=== PATIENT | male | born 1985 | race Caucasian/White ===

== ENCOUNTER 2025-02-14 01:40 | Inpatient (IN) | payer BC, SELFPAY ==
[2025-02-13 20:31] VITALS: BP 187/112
[2025-02-13 21:03] VITALS: BMI 42.9
[2025-02-13 21:17] VITALS: BP 144/79
[2025-02-13 21:27] LABS: % Basophils 0.6 % (0-2); % Eosinophils 4.1 % (0-6); % Immature Granulocytes 0.4 % (0-0.5); % Lymphocytes 35.1 % (20.5-51.1); % Monocytes 7.2 % (1.7-9.3); % Neutrophils 52.6 % (42.2-75.2); Absolute Basophils 0.1 10^3/uL (0-0.2); Absolute Eosinophils 0.5 10^3/uL (0-0.7); Absolute Immature Granulocytes 0.1 10^3/uL (0-0.05); Absolute Lymphocytes 4.4 10^3/uL (1.2-3.4); Absolute Monocytes 0.9 10^3/uL (0.1-0.6); Absolute Neutrophils 6.7 10^3/uL (1.4-6.5); Hematocrit 44.6 % (39.0-52.0); Hemoglobin 15.8 g/dL (13.0-18.0); Mean Corp Hgb Conc. 35.4 g/dL (33.0-37.0); Mean Corpuscular Hgb 29.9 pg (27.0-31.0); Mean Corpuscular Volume 84.3 fL (80.0-94.0); Mean Platelet Volume 9.6 fL (7.4-10.4); Nucleated Red Blood Cells % 0 % (-); Platelet Count 341 10^3/uL (130-400); Red Blood Cell Count 5.29 10^6/uL (4.70-6.10); Red Cell Dist. Width 12.4 % (11.5-14.5); White Blood Cell Count 12.6 10^3/uL (4.8-10.8)
[2025-02-13 21:43] LABS: ALT (SGPT) 24 U/L (0-50); AST (SGOT) 25 U/L (17-59); Albumin 4.2 g/dl (3.5-5.0); Alkaline Phosphatase 77 U/L (38-126); Blood Urea Nitrogen 15 mg/dl (9-20); Calcium 9.4 mg/dl (8.4-10.2); Carbon Dioxide 24 mmol/L (22-30); Chloride 110 mmol/L (98-107); Estimated Creatinine Clearance > 125 ml/min; Glucose 152 mg/dl (70-99); Potassium 3.7 mmol/L (3.5-5.1); Sodium 142 mmol/L (135-145); Total Bilirubin 0.7 mg/dl (0.2-1.3); Total Protein 7.1 g/dl (6.3-8.2); eGFR > 60.00
[2025-02-13 21:47] LABS: Troponin I < 0.012 ng/ml
[2025-02-13 22:00] VITALS: BP 131/79
[2025-02-13 23:00] VITALS: BP 150/98
[2025-02-13 23:00] LABS: D-Dimer 1.98 ug/mlFEU (0.00-0.50)
[2025-02-13 23:50] LABS: TSH 3.65 uIU/ml (0.47-4.68)
[2025-02-14] VITALS (15 sets, daily range): BP systolic 125–175; BP diastolic 85–115; BMI 42.0; BMI 41.9
--- NOTE | 2025-02-14 00:39 | ED.GENMED ---
History of Present Illness
General
Chief Complaint: Chest Pain
Source: patient
Exam Limitations: none
Time Seen by Provider: 02/13/25 22:01
Nursing documentation reviewed up to this point in time: agreed with
History of Present Illness
History of Present Illness:
Note:
CHIEF COMPLAINT(S)
Chest pain.
HISTORY OF PRESENT ILLNESS
The patient is a 39-year-old male who presents with chest pain that began around 4:30-5:00 PM yesterday. The pain is described as a dull ache initially rated at 1/10 in severity, located at the lower part of the sternum, left side of the chest. The
pain intensity increased to 3/10 when bending over or lying flat. He attempted to continue normal activities such as looking after children, suspecting stress, and tried self-medication with antacids like Tums, which provided no relief. Throughout
the day, while sitting, the pain was around 2/10 and increased to 4/10. He also developed a dry cough that exacerbated the pain. The patient reported his spouse�s concern about his symptoms persisting despite antacid use.
On review of associated symptoms, the patient notes an increased heart rate and mild shortness of breath since the onset of symptoms, but no significant dyspnea. He experiences increased heart rate when moving around the house with occasional
windedness but no exercise intolerance. His resting heart rate, usually around 80, has been elevated to the mid to high 90s.
ADDITIONAL HISTORY OBTAINED FROM SOURCES OTHER THAN THE PATIENT
the symptoms have persisted despite the use of antacids, prompting concern.
CHRONIC MEDICAL CONDITIONS SIGNIFICANTLY AFFECTING CARE
Chronic conditions affecting care: Family history of diabetes in the mother and possible heart problems in the father.
SOCIAL HISTORY
The patient reports very rare alcohol use during social events. There is no history of smoking or drug use. He works as a internet and e business project manager.
PHYSICAL EXAM
- Nursing notes reviewed and vital signs reviewed.
- Oxygen saturation: 95%.
- Blood pressure: Within normal limits.
- Cardiovascular: Heart sounds normal, no murmurs auscultated.
- Respiratory: Breath sounds clear, no swelling or significant dyspnea noted.
PLAN
A D-dimer test will be conducted to evaluate the presence of a blood clot. If negative, further evaluation may not be necessary. If positive, additional imaging (potentially a CT scan) will be considered.
DIFFERENTIAL DIAGNOSIS
The Differential Diagnosis includes, in no particular order and is not limited to:
1. Gastroesophageal reflux disease (GERD)
2. Costochondritis
3. Pulmonary embolism
4. Myocardial ischemia
5. Anxiety-related chest pain
6. Pericarditis
7. Musculoskeletal pain
8. Pneumothorax
9. Aortic dissection
10. Pneumonia
EKG
My independent EKG interpretation is:
- Normal sinus rhythm
- Heart rate of 99 beats per minute
- Normal intervals
- Indeterminate/normal axis
- No evidence of acute ischemia present
- No old EKG available for comparison
CARE-UPDATE
02/13/25 - 23:06
D-dimer is elevated at 1.98, prompting the decision to order a CT angiography of the chest to rule out pulmonary embolism (PE).
CARE-UPDATE
02/14/25 - 00:51
Patient presents with multiple large pulmonary emboli identified on CAT scan. Initiating anticoagulation therapy with heparin and planning for hospital admission to manage condition. Monitoring and additional evaluation required to determine
etiology. Transition to alternative anticoagulant planned after initial heparin course. Patient denies recent prolonged immobility, long road trips, or recent trauma.
PERC RULE FOR PULMONARY EMBOLISM:
Result Summary
1 points You have a positive criteria, the PERC rule cannot be used to rule out PE
Inputs:
Age >=0 -> 0 = No
HR >=00 -> 1 = Yes
O? sat on room air <95% -> 0 = No
Unilateral leg swelling -> 0 = No
Hemoptysis -> 0 = No
Recent surgery or trauma -> 0 = No
Prior PE or DVT -> 0 = No
Hormone Use -> 0 = No
WELLS' CRITERIA FOR PULMONARY EMBOLISM:
Result Summary
1.5 points Low Risk for PE & PE Unlikely
Inputs:
Clinical signs and symptoms of DVT -> 0 = No
PE is #1 diagnosis OR equally likely -> 0 = No
Heart rate > 100 -> 1.5 = Yes
Immobilization at least 3 days OR surgery in the previous 4 weeks -> 0 = No
Previous, objectively diagnosed PE or DVT -> 0 = No
Hemoptysis -> 0 = No
Malignancy w/ treatment within 6 months or palliative -> 0 = No
Disposition:
ASSESSMENT
Massive pulmonary emboli bilaterally with right heart strain.
EMERGENCY TREATMENTS ADMINISTERED
Initiation of heparin.
MANAGEMENT OF THE PATIENTS CARE WAS DISCUSSED WITH
Storage Engineer Dr. Hutson.
PLAN
Patient to be admitted to the hospitalist service for further management.
MEDICATION RECONCILIATION
Initiated heparin anticoagulation therapy.
MEDICAL DECISION MAKING
1. Number & Complexity of Problems: Acute condition with massive bilateral pulmonary emboli with right heart strain.
2. Data Reviewed: Reviewed CT angiography findings confirming pulmonary embolism.
3. Risk: Consideration of admission was made due to the complexity and high-risk nature of the condition. Inpatient management is necessary given the massive emboli and right heart strain.
DIAGNOSIS
Massive pulmonary emboli with right heart strain.
PATHOLOGIES TO CONSIDER
- Pulmonary embolism (confirmed)
- Acute coronary syndrome (differential considered)
Phy Exam
General Physical Exam
General Presentation: well appearing and no apparent distress
General Skin: warm and dry
General Habitus: normal
General Mental: alert
General Hydration: appears well hydrated
ENT Exam
ENT Exam: EOMI, pharynx normal, neck supple and normocephalic
Eye Exam
Eye Exam: PERRL, cornea clear and conjunctiva normal
Cardiovascular Exam
Cardiovascular Exam: regular rate/rhythm, no edema, no murmur and normal peripheral pulses
Pulmonary Exam
Pulmonary Exam: lungs clear, no respiratory distress, no rales, no crackles, no rhonchi, no stridor, no wheezing and no cough
Gastrointestinal Exam
Gastrointestinal Exam: normal bowel sounds, non tender, soft, no organomegaly, no pulsatile mass and non distended
Neurological Exam
Neurological Exam: alert, oriented x3, no motor deficits and speech normal
Musculoskeletal Exam
Musculoskeletal Exam: full ROM and no edema
Skin Exam
Skin Exam: normal color, warm/dry, no rash and no petechia
Psychiatric Exam
Psychiatric Exam: normal mood/affect
Scores
Heart Score for Chest Pain Patients
STEMI patient?: No
History: Moderately Suspicious
ECG: Normal
Age: </= 45 years
Risk Factors: 1 or 2 Risk Factors
Troponin: </= Normal Limit
Heart Score for Chest Pain Patients: 2
Heart Score Risk: 2.5% MACE over next 6 weeks
Course
Orders/Labs/Results
Orders:
Orders
02/13/25 20:26
EKG [Electrocardiogram (*1)] Urgent
Reason for Study: Chest Pain
EKG- Treatment ONCE
02/13/25 21:14
Complete Blood Count/With Diff Urgent
Comprehensive Metabolic Panel Urgent
TSH Urgent
Comment: ADD ON
Troponin I Urgent
02/13/25 22:17
Add On- LAB Urgent
Tests Added?: TSH
Electrocardiogram (*1) Urgent
Reason for Study: Chest Pain
02/13/25 22:20
D-Dimer Urgent
PTT Urgent
Comment: ADD ON
02/13/25 23:13
EKG- Treatment ONCE
02/14/25 00:01
EKG [Electrocardiogram (*1)] Urgent
Reason for Study: Chest Pain
02/14/25 00:08
CT Chest PE Study Urgent
Reason For Exam: dyspnea, cp, elev DDIMER
02/14/25 00:30
Add On- LAB Urgent
Tests Added?: PTT
02/14/25 00:37
Troponin I Urgent
02/14/25 00:48
Heparin 10,000 units IV NOW STA
Nursing to Place Non Medication Order As Directed
Physician Order: PTT 6 hours after initial start of Heparin infusion
Above order entered?: Yes
02/14/25 00:55
Heparin 10,000 units IV PRN PRN
Heparin 5,000 units IV PRN PRN
02/14/25 01:00
Flush (0.9% Sodium Chloride) [Flush (Nss)] See Dose Instructions IV PER PROTOCOL
Heparin 45719 Units/250 ml 25,000 units in 250 ml IV PER PROTOCOL
Weight to be used for heparin protocol in kilograms (kg):: 155.6
Protocol:: DVT/PE
PTT Goal Range to be used:: PTT 73 to 111 seconds
Order type:: Initial
INITIAL Infusion Dose (UNITS/KG/hr) & then follow protocol:: 18 units/kg/hr
Infusion Dose in UNITS/hr & then follow protocol (UNITS/hr):: 2,000
INFUSION RATE in mL/hr & then follow protocol (mL/hr):: 20
For DVT/PE algorithm, re-bolus for low PTT?: Yes
PTT less than or equal to 64 seconds:: Re-bolus 80 units/kg (max 10,000units). Increase by 500 units/hr
(+ 5mL/hr)
PTT 64.1 to 72.9 seconds:: Re-bolus 40 units/kg (max 5,000 units). Increase by 300 units/hr
(+ 3mL/hr)
PTT 73 to 111 seconds:: Target Range. No change in rate.
PTT 111.1 to 130.9 seconds:: Decrease rate by 300 units/hr (- 3 mL/hr)
PTT 131 to 199.9 seconds:: HOLD for 1 hr. Then decrease by 400 units/hr (- 4mL/hr)
PTT greater than or equal to 200 seconds:: HOLD for 2 hrs & Notify Provider. Then decrease by 500 units/hr
(- 5mL/hr)
Lab follow-up:: Each change, PTT q6h until 2 consecutive are therapeutic. Then
PTT daily.
02/14/25 01:27
Admit/Transfer Patient As Directed
Co-Sign Provider:
Level of Care: Inpatient admission
Assign to:: IMU- Intermediate Care
Physician / Group: Mati
Diagnosis: pulmonary embolism
Reason for Hospitalization: pulmonary embolism
Expected length of stay greater than two midnights?: Yes
ELOS- Estimated Length of Stay in days: 2
I certify the patient meets the requirements for IP care: Yes
02/14/25 01:28
PRN Pain Medication Management As Directed
May give lesser potent ordered pain med per pt: Yes
preference::
Protocol:: Medication orders for pain may be administered in a
manner that supports deferring to patient preference
when the pt is:
- Requesting an ordered lesser potent pain medication.
Least to most potent pain medications are defined
as: acetaminophen < NSAID < tramadol < opioids
(morphine, oxycodone, hydromorphone).
- Requesting a lesser dose of the same medication IF
ORDERED.
- Requesting a less intrusive route of administration
if both routes are prescribed by the provider (PO <
IV).
02/14/25 01:29
Code Status As Directed
Resuscitation Status: Full Code
02/14/25 01:35
PRN Pain Medication Management As Directed
May give lesser potent ordered pain med per pt: Yes
preference::
Protocol:: Medication orders for pain may be administered in a
manner that supports deferring to patient preference
when the pt is:
- Requesting an ordered lesser potent pain medication.
Least to most potent pain medications are defined
as: acetaminophen < NSAID < tramadol < opioids
(morphine, oxycodone, hydromorphone).
- Requesting a lesser dose of the same medication IF
ORDERED.
- Requesting a less intrusive route of administration
if both routes are prescribed by the provider (PO <
IV).
02/14/25 01:43
COVID-19 Antigen Stat
Source: Nasal Swab
02/14/25 02:12
Acetaminophen [Tylenol] 650 mg PO Q4HPRN PRN
Morphine Sulfate 2 mg IV Q4HPRN PRN
02/14/25 02:12
Echo 2D MMode Color/Doppler Routine
Reason for Study: pulmonary embolism
PULMONARY CONSULT Routine
Consulting Provider: Keerthi Hutson
Was physician already notified: Yes
Heparin Protocol- PTT Orders As Directed
PTT per Heparin protocol: -Obtain CBC and baseline PTT - if not already collected.
-Obtain PTT 6 hours from start of infusion. Then, every 6 hours until 2 consecutive
PTT's are therapeutic. Then, PTT Daily.
-With each rate change, obtain PTT every 6 hours until 2 consecutive PTT's are
therapeutic. Then, PTT Daily.
Activity As Directed
Activity Level: As Tolerated
Bladder Scan As Directed
Follow Bladder Retention/Intermittent Cath Algorithm?: Yes
Frequency: Per Retention Algorithm
Comment: as per intermittent urinary catheter algorithm
Bladder Scan As Directed
Follow Bladder Retention/Intermittent Cath Algorithm?: Yes
PRN if no void in __ hours: 6
Frequency: Per Retention Algorithm
If Bladder Scan Result >: 400
then:: Straight cath
Intake/ Output As Directed
Frequency: Per unit guidelines
Notify MD As Directed
Notify physician if: PTT is greater than or equal to 200.
Straight Cath As Directed
Frequency: Per Retention Algorithm
Additional Instructions: as per intermittent urinary catheter algorithm
Straight Cath As Directed
Frequency: Per Retention Algorithm
Additional Instructions: straight cath as needed per acute urinary retention algorithm for 24 hrs
Additional Instructions: for bladder scan greater than 400 mL
Vital Signs As Directed
Frequency: Per unit guidelines
O2 Therapy [RESP] Routine
Titrate/Wean O2 to maintain O2 sat greater than (%): 90
Pulse Ox/cont/shift [RESP] Routine
Quantity: 1
Special Instructions: check O2 Sat Q8 hours and at each change in oxygen liter flow and FiO2
Venous Doppler Lwr Ext Bilat [US Periph Venous LOWER Ext Joshua] Urgent
Comment:
Reason For Exam: joshua PE, eval LE for dvt and clot burden
02/14/25 Breakfast
Cholesterol Lowering
At Your Request: Full Participation
Cholesterol Lowering: Sodium, 2 Gram
Glycohemoglobin (HgbA1c) IN AM
PTT Urgent
Comment: Heparin gtt
Procalcitonin IN AM
If negative, will antibiotics be d/c'd or not started: Yes
Does the patient have renal or hepatic impairment?: No
Any recent (w/in 48 hrs) physiologic stress (CPR, rhabdo): No
Troponin I IN AM
02/14/25 08:00
Multivitamin [Theragran] 1 tablet PO DAILY
Polyethylene Glycol Powder [Miralax] 17 grams PO DAILY
02/16/25 06:00
Complete Blood Count/No Diff Q2D
Comment: notify provider: Platelet count < 130,000 or decrease by 50% from baseline
02/16/25 11:00
DC Protocol for Telemetry ONCE
02/18/25 06:00
Complete Blood Count/No Diff Q2D
Comment: notify provider: Platelet count < 130,000 or decrease by 50% from baseline
02/20/25 06:00
Complete Blood Count/No Diff Q2D
Comment: notify provider: Platelet count < 130,000 or decrease by 50% from baseline
02/22/25 06:00
Complete Blood Count/No Diff Q2D
Comment: notify provider: Platelet count < 130,000 or decrease by 50% from baseline
02/24/25 06:00
Complete Blood Count/No Diff Q2D
Comment: notify provider: Platelet count < 130,000 or decrease by 50% from baseline
02/26/25 06:00
Complete Blood Count/No Diff Q2D
Comment: notify provider: Platelet count < 130,000 or decrease by 50% from baseline
02/28/25 06:00
Complete Blood Count/No Diff Q2D
Comment: notify provider: Platelet count < 130,000 or decrease by 50% from baseline
03/02/25 06:00
Complete Blood Count/No Diff Q2D
Comment: notify provider: Platelet count < 130,000 or decrease by 50% from baseline
Abnormal Lab Results
02/13/25 02/13/25
21:14 22:20
WBC 12.6 H 10^3/uL
(4.8-10.8)
Abs Immat Gran (auto) 0.1 H 10^3/uL
(0-0.05)
Absolute Neuts (auto) 6.7 H 10^3/uL
(1.4-6.5)
Absolute Lymphs (auto) 4.4 H 10^3/uL
(1.2-3.4)
Absolute Monos (auto) 0.9 H 10^3/uL
(0.1-0.6)
D-Dimer 1.98 H ug/mlFEU
(0.00-0.50)
Chloride 110 H mmol/L
(98-107)
Glucose 152 H mg/dl
(70-99)
02/13/25 21:14
02/13/25 21:14
Vital Signs
Initial and Last Documented VS:
Initial Vital Signs
Temp Pulse Resp BP Pulse Ox
98.1 F 104 22 187/112 95
02/13/25 20:31 02/13/25 20:31 02/13/25 20:31 02/13/25 20:31 02/13/25 20:31
Last Documented Vital Signs
Temp Pulse Resp BP Pulse Ox
98.3 F 89 16 150/100 94
02/14/25 02:26 02/14/25 06:15 02/14/25 06:15 02/14/25 06:00 02/14/25 06:15
*Radiology
Radiology exam reviewed: radiology read reviewed
*Pulse Oximetry
SaO2: 95
Oxygen Mode of Delivery: Room air
*Critical Care Note
Total Time (30-74mins, 75-104mins- exclusive of procedures): 41
comment:
Critical care statement: A total of 41 minutes of critical care time was provided for this patient. This time is separate from time utilized to perform the aforementioned documented procedures. Aggregate critical care time includes only time
during which I was engaged in work directly related to the patient's care, as described above, whether at the bedside or elsewhere in the Emergency Department.
Update Note
Update Note:
NAME: INA EAST
DATE OF EXAM: 02/14/2025
Patient No: [id number]
Physician: YOCASTA^Kaia
Date of : 1985
Past Medical History (entered by Technologist):
Reason For Exam (entered by Technologist): CP, SOB. elevated ddimer
Other Notes (entered by Technologist): no prior
Additional Information (per [facility] Radiologist):
CT CHEST WITH CONTRAST
IMPRESSION:
Large pulmonary emboli are noted in the main right and left pulmonary arteries extending into all lobar branches.
Small amount of peripheral consolidation is noted at the left lung base with adjacent trace pleural effusion. May represent a small lung infarction in this context. Infection not excluded.
Bowing is noted of the intraventricular septum, concerning for potential right heart strain.
Mosaic pattern protrusion noted in both lungs which can be seen with differential perfusion or air-trapping.
No evidence of aortic dissection.
Inferior most aspect of the right lung not included in the [id number] obtained.
Incidental findings on CT chest:
Mild degenerative changes noted of the spine.
Case discussed with Dr. Moore at 1247 AM ET.
Spoke with Dr. Hutson, specialist field engineer after PERT alert was called. He recommends heparin and admission.
ED Attending Note
-
Portions of this chart may have been created with voice recognition software.� Occasional wrong word or��sound alike� substitutions may have occurred due to the inherent limitations of voice recognition software.
Discharge Plan
Departure
Patient Disposition: Admit
Date of Disposition: 02/14/25
Time of Disposition: 00:54
Presentation/result/management discussed w/ accepting MD/DO: Hospitalist
Discharge Problem:
Pulmonary embolism, Right heart strain
Interventions
Interventions:
*Risk Screen - Suicide Last Done: 02/13/25 20:31
*General Assessment Last Done: 02/13/25 20:31
*Neglect/Abuse Screening Last Done: 02/13/25 20:31
*ED- Fall Risk Assessment Last Done: 02/13/25 21:03
*ED COVID-19 Vaccine History Last Done: 02/14/25 02:02
*Nursing Disposition Last Done: 02/14/25 02:20
ED- Cardiac Assessment Last Done: 02/13/25 21:03
Discharge Date and Time
Discharge Date/Time: 02/14/25 02:21
[2025-02-14 00:50] LABS: APTT 32.7 Sec (23.4-35.0)
[2025-02-14] MEDS: HEPARIN 10000 UNITS IV (01:04)
[2025-02-14] MEDS: HEPARIN 25000 UNITS/250 ML IV ×2 (01:06→14:01)
[2025-02-14 01:13] LABS: Troponin I < 0.012 ng/ml
--- NOTE | 2025-02-14 01:16 | HPS.HSE ---
Family Physician
-
Family Physician: Judy Henry
Chief Complaint
-
Chest pain
History of Present Illness
This is a 39-year-old male with past medical history significant for obesity who presents to the emergency department with 1 day history of chest pain shortness of breath and dyspnea on exertion and was found to have bilateral pulmonary emboli in
the emergency department.
Patient reported onset of noticeable symptoms around 4 PM yesterday. Started as substernal chest ache and then intensified over the ensuing hours. He started having more dyspnea and increasing chest pain with his basic activities such as looking
after his children. He took antacids such as Tums without any relief. He denied any radiation nausea vomiting or diaphoresis. The chest pain slowly exacerbated over the rest of the evening and today. He started having a cough that was dry and
associated with worsening chest pain. He stated that with any amount of activity he notices that his heart rate spikes to the 120s and dosing return to his baseline heart rate despite resting. His heart rate response to the 90s and 100 whereas his
baseline is around 80. He denies feeling lightheaded.
Patient denies any recent calf pain swelling or tenderness. Denied any recent travels. Denies any recent COVID infection or flulike illness.
Patient denies any recent accidents, hospitalizations or otherwise immobilization. 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
He denies any family history of clotting disorders.
In the emergency department patient was hemodynamically stable with a blood pressure of 144/79 and was satting 97% on room air. He was afebrile. ECG shows a normal sinus rhythm without any acute ST or T wave changes. His initial troponin was
negative.
White count. 0.6 hemogram platelets were normal. Electrolytes were normal. BUN/creatinine were normal.
A CT PE study showed large pulmonary emboli noted in the main right and left pulmonary arteries extending into all lobar branches with a small amount of peripheral consolidation thought to be likely a small infarct. There is evidence of mild
interventricular septal bowing consistent with possible right heart strain.
Medical History
Past Medical History
Past Medical History: Reports None
Past Surgical History: Reports Other (Umbilical hernia repair)
Social History
Tobacco: Non-smoker
Alcohol: None
Drug: None
Personal:
Living: With Family
Employment: Employed
Family History
Family History: CAD (Father with CAD) and Cancer (Father with colon cancer in his late 70s)
Allergies / Home Medications
Allergies reflects when Allergies were last updated in [facility].
Home Medications with original date entered in [facility]
Allergy/Medication List:
Allergies
Allergy/AdvReac Type Severity Reaction Status Date / Time
No Known Allergies Allergy Verified 02/13/25 22:40
Home Medications
multivitamin 1 tab PO DAILY 02/13/25
Review of Systems
-
Constitutional: Reports No Symptoms
EENT: Reports No Symptoms
Respiratory: Reports Cough and Trouble Breathing
Cardiac: Reports Chest Pain; Denies Diaphoresis, Palpitations or Syncope
Abdomen/GI: Reports No Symptoms
: Reports No Symptoms
Musculoskeletal: Denies Edema
Skin: Reports No Symptoms
Neurological: Reports No Symptoms
Endocrine: Reports No Symptoms
Hematologic/Lymphatic: Reports No Symptoms
Psych: Reports No Symptoms
Physical Exam
Vital Signs
Vital Signs
Temp Pulse Resp BP Pulse Ox
98.1 F 98 20 144/79 95
02/13/25 20:31 02/13/25 21:30 02/13/25 22:39 02/13/25 21:17 02/14/25 00:40
Physical Exam
General: Well Developed, Well Nourished, No Apparent Distress and Obese
HEENT: NormoCephalic, Moist mucous membranes and Atraumatic
Respiratory: Clear
Cardiac: S1/S2 and Regular Rhythm; No Murmur or Rub
GI: Soft, Non Tender, Non Distended and Normal Bowel Sounds; No Organomegaly
Rectal: Deferred by Provider
Musculoskeletal: No Clubbing, No Cyanosis and No Edema
Skin: No Rash
Neuro: Nonfocal/grossly intact
Hematologic/Lymphatic: No Lymphadenopathy
Psych: Calm
Laboratory Results
-
02/13/25 21:14
02/13/25 21:14
Laboratory Results
APTT 32.7 Sec (23.4-35.0) 02/13/25 22:20
Total Bilirubin 0.7 mg/dl (0.2-1.3) 02/13/25 21:14
AST 25 U/L (17-59) 02/13/25 21:14
ALT 24 U/L (0-50) 02/13/25 21:14
Alkaline Phosphatase 77 U/L (38-126) 02/13/25 21:14
Troponin I < 0.012 ng/ml 02/14/25 00:37
Data Reviewed
-
CT Scan: Report Reviewed by me
Medical Tests (Nuc Med, Echo, EKG etc): Image Personally Visualized and interpreted
Lab Data: Labs Reviewed by me
Old Records: Reviewed
Impression/Plan
-
IMPRESSION:
39-year-old male with obesity but otherwise no significant past medical history, presenting with unprovoked pulmonary embolism with bilateral pulmonary artery emboli and the likely a small pulmonary infarct. CT scan consistent with possible right
heart strain. Patient is hemodynamically stable, not requiring oxygen, nontachycardic at rest. ECG is nonischemic and shows no strain. His troponin is negative.
PLAN:
Bilateral pulmonary embolism�at this time no evidence that he was provoked by anything. Patient has a sedentary lifestyle but otherwise normal risk factors and no family history. He does not have large clot burden but no evidence of massive or
submassive PE at this time. The PESI score is 49, low risk category despite large clot burden.
- admit to IMU given large clot burden
- obtain echo
- while echo pending, will continue IV heparin gtt anticoagulation
- covid test, joshua LE u/s,
- serial examinations
- pulmonary aware and consulted
- based on unprovoked nature of PE, consider hypercoagulable w/u.
Code status -Full Code
[2025-02-14 02:05] LABS: COVID-19 Antigen Negative (Negative)
--- NOTE | 2025-02-14 03:02 | PTCARENOTE ---
Patient admitted to IMU from ED, aao x3, able to make needs known. Denies pain at rest, states he has some discomfort with activity to area below rib cage/sternum. NSR on the monitor. Lung sounds diminished throughout, 94% on ra, denies sob or velazquez.
BS active x4, patient stand by assist x1 to the bathroom, gait steady. Patient urinated moderate amount. Heparin gtt running to right a/c at 20ml/hr. Call nance within reach, will continue to monitor patient closely.
[2025-02-14 06:32] LABS: APTT 97.8 Sec (23.4-35.0)
[2025-02-14 06:51] LABS: Procalcitonin < 0.05 ng/ml (0.0-0.25)
[2025-02-14 06:53] LABS: Troponin I < 0.012 ng/ml
[2025-02-14] MEDS: THERAGRAN 1 TABLET PO (07:44)
--- NOTE | 2025-02-14 08:14 | CON.PUL ---
Consultation
Consultation Request
Date/Time Consultation Requested: 02/14/2025
Date/Time Consultation Performed: 02/14/2025
Requesting Provider: Elizabeth Thorne
Performing Provider: Keerthi Hutson
Reason for Consultation: Pulmonary Embolism
Medical History
-
Chief Complaint: Chest pain
History of Present Illness:
Patient is a 39-year-old gentleman with morbid obesity and overall sedentary lifestyle, who presented to emergency room with 1 day onset of chest pain. Initial troponin and EKG in the emergency room were unremarkable. Patient subsequently had a CT
scan which was suggestive of bilateral pulmonary embolism with right heart strain.
PERT alert was called, I discussed the case with the ED physician. Patient was hemodynamically stable not hypotensive, saturating well on room air. Right heart strain was noted however biomarkers including serial troponin were negative. Decision
was made to continue with anticoagulation only for now and hold off catheter directed therapies. Echocardiogram was advised.
Pulmonary consultation was requested for further input.
Past Medical History
Past Medical History: Reports None
Past Surgical History: Reports Other (Umbilical hernia repair)
Social History
Tobacco: Non-smoker
Alcohol: None
Drug: None
Personal:
Living: With Family
Employment: Employed
Family History
Family History: CAD (Father with CAD) and Cancer (Father with colon cancer in his late 70s)
Allergies / Home Medications
Allergies / Home Medications
Allergies
Allergy/AdvReac Type Severity Reaction Status Date / Time
No Known Allergies Allergy Verified 02/13/25 22:40
Home Medications
�Medication �Instructions �Recorded �Confirmed �Last Taken �Type
multivitamin 1 tab PO DAILY 02/13/25 02/13/25 Unknown History
Review of Systems
-
Hematologic/Lymphatic: Other (All 14 systems reviewed and negative except as stated above in the history of present illness.)
Vitals / Labs / Diagnostic Testing
Vital Signs
Temp Pulse Resp BP Pulse Ox
98.3 F 89 16 150/100 94
02/14/25 02:26 02/14/25 06:15 02/14/25 06:15 02/14/25 06:00 02/14/25 06:15
Lab Data
02/13/25 21:14
02/13/25 21:14
Laboratory Results
02/13/25 02/14/25
22:20 06:00
APTT 32.7 97.8 H
Diagnostic Testing:
Physical Exam
-
HEENT: Normocephalic
Cardiovascular: S1/S2
Respiratory: Clear and Non-Labored Respirations
GI: Soft and Non Distended
Neurology: Awake, Alert and Oriented
Skin: Warm
General: Comfortable
Assessment
-
#1. Acute Pulmonary Embolism, bilateral
- ?Etiology. Patient needs hypercoagulability workup, outpatient hematology follow-up. Obesity and sedentary lifestyle with particularly 5 to 7 hours of continuous sitting are risk factors for PE. However considering extent of VTE and patient's
young age, need to evaluate for any underlying hypercoagulable condition that might put him at risk for repeat PEs in future once anticoagulation is stopped.
- Hemodynamically stable, saturating well on room air. Right heart strain noted on CT (RV:LV 1.3 with septal bowing) however biomarkers are negative, troponin x 3 negative. Hold off catheter directed therapies.
- Continue anticoagulation with IV heparin, proceed with echocardiogram for further evaluation
- Recommend lower extremity Doppler exam
- Developing opacities are likely pulmonary infarcts, hold off antibiotics, procalcitonin negative
- Considering overall hemodynamic stability, can transition to oral anticoagulants
Total time spent on this consultation/encounter ___62_ minutes which includes review of history, physical exam, medications, laboratory data, personal review of imaging, extensive review of outpatient records, discussion with care team and
respiratory therapy.
Data:
CT-PE 01/2025: Positive for pulmonary embolism. Large clot burden.
Pulmonary artery branching order level of the most proximal pulmonary embolism: Lobar.
Findings suggestive of right ventricular heart strain.
Trace left pleural effusion. Small amount of peripheral parenchymal opacity at the lung bases, left greater than right. Likely atelectasis. Early or developing pulmonary infarct not entirely excluded.
[2025-02-14 09:37] LABS: Glycohemoglobin (HgbA1c) 5.9 % (4.0-5.6)
--- NOTE | 2025-02-14 11:22 | CM ---
Addendum entered by Kay Castillo RN 02/14/25 11:35:
Request from Dr Blas for wolfe check for Eliquis 5mg BID- per ambulatory orders, cost at [facility] will be $130/month.
provided $10/month copay card- patient/ ok with cost. Dr Blas notified.
Original Note:
Patient with Hx obesity with Dx Bilateral pulmonary embolism. Room air. Receiving heparin gtt. Per nurse; ambulatory in room.
Met with patient and Hannah; the patient resides with his in a one story house with no outside steps.
He was independent in ADLs and ambulation, active, driving and working at home & at an office.
The patient has no DME or prior VN.
PCP - Judy Henry
Pharmacy [facility]
No CM d/c needs identified.
Plan home.
--- NOTE | 2025-02-14 14:02 | W.PN.UPDATE ---
Update Note
Progress Note Update
stable
hep ggt, can be transitioned to Eliquis - cost ok by patient
ECHO
LE Doppler - DVT noted
add on anticardiolipin, antiphospholipid, and anticardiolipin - should f/u outpt
[2025-02-14 15:09] LABS: APTT 35.4 Sec (23.4-35.0)
[2025-02-14 16:46] LABS: APTT 52.7 Sec (23.4-35.0)
--- NOTE | 2025-02-14 18:28 | PTCARENOTE ---
ptt not WNL, tt Dr. millard, instructed to increase hep gtt per protocol, however per dr. millard pt not bolused w/ heparin.
[2025-02-14] MEDS: ELIQUIS 10 MG PO (20:15)
[2025-02-14] MEDS: TYLENOL 650 MG PO (20:31)
--- NOTE | 2025-02-14 22:18 | PTCARENOTE ---
Received patient at start of shift, aao x3, able to make needs known. Heparin gtt discontinued at 1900 as instructed by and reviewed with overnight [employer]. 1st dose of Eliquis around 1999. Education provided regarding medication regimen,
therapeutic regimen, and bleeding risk. Understanding verbalized. Patient c/o headache earlier as well, prn tylenol administered at that time with positive results noted. Will continue to monitor patient closely.
[2025-02-15] VITALS (9 sets, daily range): BP systolic 124–169; BP diastolic 90–111; BMI 41.8
[2025-02-15 04:16] LABS: Hematocrit 44.5 % (39.0-52.0); Hemoglobin 15.4 g/dL (13.0-18.0); Mean Corp Hgb Conc. 34.6 g/dL (33.0-37.0); Mean Corpuscular Hgb 29.7 pg (27.0-31.0); Mean Corpuscular Volume 85.7 fL (80.0-94.0); Mean Platelet Volume 9.4 fL (7.4-10.4); Platelet Count 311 10^3/uL (130-400); Red Blood Cell Count 5.19 10^6/uL (4.70-6.10); Red Cell Dist. Width 12.7 % (11.5-14.5); White Blood Cell Count 9.7 10^3/uL (4.8-10.8)
[2025-02-15 04:48] LABS: ALT (SGPT) 23 U/L (0-50); AST (SGOT) 24 U/L (17-59); Albumin 3.9 g/dl (3.5-5.0); Alkaline Phosphatase 75 U/L (38-126); Blood Urea Nitrogen 14 mg/dl (9-20); Carbon Dioxide 24 mmol/L (22-30); Chloride 110 mmol/L (98-107); Estimated Creatinine Clearance > 125 ml/min; Glucose 122 mg/dl (70-99); Potassium 4.7 mmol/L (3.5-5.1); Sodium 141 mmol/L (135-145); Total Bilirubin 0.9 mg/dl (0.2-1.3); Total Protein 6.6 g/dl (6.3-8.2); eGFR > 60.00
[2025-02-15] MEDS: THERAGRAN 1 TABLET PO (07:48)
[2025-02-15] MEDS: ELIQUIS 10 MG PO (07:48)
--- NOTE | 2025-02-15 09:31 | W.PN.HOSP.TC ---
Today's Communication/Plan
-
d/c home
Assessment / Plan
Assessment / Plan
1. Submassive PE - bilateral
Left leg DVT
- CT chest PE showing bilateral PE.
- Left leg venous Doppler showing femoral/popliteal/peroneal vein clot
- Low PESI score although there was some bowing of interventricular septum was seen on imaging
- Neg trop level
- Pulmonology evaluated and appropriate for transitioning patient from heparin drip to Eliquis
- Hypercoagulability workup sent, result of which is pending
- TTE largely normal with minimally increased right sided pressure, cardio will f/u in office in 4 weeks
2. Presumed HTN
- elevated BP, cardio planning to f/u in office.
- monitor off meds
DVT PPX - eliquis
Full code
More than 30 minutes spent in discharge including
Final examination of the patient
Summarizing hospital stay
Instructions for continuing care to all relevant caregivers
Preparation of discharge records, prescriptions, and referral forms
Total time spent (in minutes): 38 mins
Anticipated Discharge: Today
Subjective/Interval History
-
Date of Service: February 15, 2025
Denies any chest discomfort/palpitation
No other reported problems
Objective Data
-
Labs:
Laboratory Results
02/14/25 02/15/25
23:00 04:06
WBC 9.7
Hgb 15.4
Hct 44.5
Plt Count 311
APTT Cancelled
Sodium 141
Potassium 4.7 D
Chloride 110 H
Carbon Dioxide 24
BUN 14
Creatinine 0.7
Glucose 122 H
Calcium 9.0
Total Bilirubin 0.9
AST 24
ALT 23
Alkaline Phosphatase 75
Vital Signs:
Vital Signs
Temp Pulse Resp BP Pulse Ox
97.9 F 86 14 155/109 95
02/15/25 07:35 02/15/25 08:00 02/15/25 08:00 02/15/25 08:00 02/15/25 08:50
Review of Systems
-
Respiratory: Reports No Symptoms
Cardiac: Reports No Symptoms
Abdomen/GI: Reports No Symptoms
Physical Exam
-
General: No Apparent Distress and Comfortable
HEENT: Negative Oxygen
Respiratory: Clear to Auscultation
Cardiac: Regular Rhythm and S1/S2; Negative Murmur or Rub
GI: Soft, Nontender, Nondistended and Normal Bowel Sounds
Musculoskeletal: No Edema
Neuro: Awake, Alert, Oriented, No Motor Deficits and Nonfocal/Grossly Intact
Psych: Calm
--- NOTE | 2025-02-15 09:31 | W.DCSUMMARY ---
Discharge Summary
Discharge Data
Date of Admission: 02/14/25
Date of Discharge: 02/15/25
-
Pending Results: Yes
Additional Pending Results:
Hypercoagulability blood work
Hospital Course
Discharging Physician : Dr Rommel Delvalle
Disposition : To home
Primary care physician : Dr Judy Henry
Principal Discharge diagnosis :
Bilateral pulmonary embolism
Left lower extremity deep venous thrombosis
Elevated blood pressure
Chronic Discharge diagnosis :
Obesity
Hospital Course :
Patient is a 39-year-old male with no significant past medical history came to ER for new onset of shortness of breath and exertional dyspnea. Patient in general have some exertional dyspnea although noted significant change. In ER patient had a
CT chest PE which showed bilateral pulmonary embolism. Patient was started on heparin drip. Pulmonology was involved in care as further evaluation. Cardiac enzymes were negative. Patient was deemed not a candidate for any tPA due to low severity
scoring of PE. Patient had lower extremity venous Doppler which showed left femoral/popliteal/peroneal vein clot as well. Hypercoagulable workup was sent result of which is pending at discharge. Patient was monitored in the hospital for 48 hours
and was transition to [facility]. An echocardiogram was done before discharge showed mild TR with pulmonary artery pressure of 43 mmHg. Cardiology is planning to have patient followed up in the office in 4 weeks for repeat echocardiogram. Patient
reason for blood 40s likely secondary lifestyle in DVT
Patient also had elevated blood pressure although does not have any formal diagnosis of hypertension. Patient advised to follow-up with primary care physician/cardiology for further evaluation.
Important imaging findings :
None
Procedure findings :
None
Discharge Plan
-
Patient Disposition: Home (Routine Discharge)
Discharge Diagnosis/Procedures: PE and Left leg DVT
Condition: Fair
Diet: 2 Gram Sodium
Activity: As tolerated and No strenuous activity
Additional Activity: Clear to do non-exertional activity
Driving Restrictions: No driving for 24 hours
Bathing Restrictions: OK to Shower
Referrals:
Manuel Bey DO [Active, Hematology / Oncology] - in two to four weeks
Referral Note: Please call office to setup an appointment
Keerthi Hutson MD [Active, Pulmonary Medicine] - in one to two months
Judy Henry MD [Family Provider, [facility]] - in one week
Referral Note: Please call the office to setup appointment
Prescriptions:
New
Eliquis 5 mg Tablet
See Rx Instructions .ROUTE .COMPLEX Qty: 72 0RF
Rx Instructions:
Take 2 Tablets Twice daily for 6 days THEN
Take 1 Tablet Twice daily for maintenance
1st month supply
acetaminophen 325 mg Tablet
650 mg PO Q4HPRN PRN (Reason: mild mod pain) Qty: 60 0RF
Eliquis 5 mg tablet
5 mg PO BID Qty: 60 1RF
Rx Instructions:
2nd and 3rd month supply
Continued
multivitamin Tablet
1 tab PO DAILY
Discharge Orders:
Discharge Patient (As Directed); Ordered 02/15/25
Ordered By: Rommel Delvalle
Discharge Date and Time
Discharge Date/Time: 02/15/25 13:07
Print Language: PUERT[place] R[place]
--- NOTE | 2025-02-15 10:16 | CM ---
CM reviewed pt with Dr Hermilo arcos today pending echo
Bedside meeting with pt
He confirms he has [employer] co-pay card and will call family for ride home
Discharge Disposition- home, no needs- family transport
--- NOTE | 2025-02-15 10:21 | PTCARENOTE ---
Assumed care of patient at beginning of this shift from previous RN. Patient receiving eliquis 10mg po bid. Denies CP or SOB on exertion. Ambulated to BR for hygiene. ECHO done at bedside. Patient for discharge. Reviewed with Dr Delvalle that BPs have
been elevated; current BP 152/103. OK for discharge as per Dr Delvalle. See worklist for full assessment and vital signs.
--- NOTE | 2025-02-15 12:15 | PTCARENOTE ---
When reviewing d/c instructions, eliquis is listed as 10mg bid x6 days then 5mg bid after. Confirmed with Dr Delvalle that eliquis 5mg bid is to start on Saturday, 02/21. Patient reviewed all instructions, verbalized understanding of all. Also instructed
patient to notify physician if seeing blood in urine, noticed red or black stools, falls, hits head or if he cuts himself and it does not stop bleeding.
[2025-02-18 01:53] LABS: Phosphatidylserine Ab, IgA 0 APS (0-19); Phosphatidylserine Ab, IgG 7 GPS (0-15); Phosphatidylserine Ab, IgM 3 MPS (0-21)
[2025-02-18 02:15] LABS: Beta-2-Glycoprotein I Ab. IgA <10 SAU (<=20); Beta-2-Glycoprotein I Ab. IgG <10 SGU (<=20); Beta-2-Glycoprotein I Ab. IgM <10 SMU (<=20)
[2025-02-18 07:49] LABS: Cardiolipin IgA Antibody <10 APL (<=11); Cardiolipin IgM Antibody 12 MPL (<=12); Cardiolipin Igg Antibody <10 GPL (<=14)
== END 2025-02-15 13:07 | disposition home or self-care (01) | DRG 299 ==
LOC: IMU 01:40
PROVIDERS: Emergency Medicine; Internal Medicine; Nurse Practitioner Family; ADMITTING PHYSICIAN Internal Medicine; ATTENDING PHYSICIAN Hospitalist; CONSULT PHYSICIAN Internal Medicine; EMERGENCY PHYSICIAN Student in an Organized Health Care Education/Training Program; FAMILY PHYSICIAN Family Medicine
DX: I82.402 Acute embolism and thrombosis of unspecified deep veins of left lower extremity (principal); I26.99 Other pulmonary embolism without acute cor pulmonale; Z68.41 Body mass index [BMI] 40.0-44.9, adult; E66.01 Morbid (severe) obesity due to excess calories; R03.0 Elevated blood-pressure reading, without diagnosis of hypertension; Z79.01 Long term (current) use of anticoagulants; Z11.52 Encounter for screening for COVID-19
CPT/HCPCS: 71275; 80053; 83036; 84145; 84443; 84484; 85025; 85027; 85379; 85610; 85613; 85730; 86146; 86147; 86148; 87811; 93005; 93306; 93970; 99291; Q9950; Q9967

== ENCOUNTER → 2025-03-17 13:02 | Outpatient (REF) | payer BC, SELFPAY | LOC: RCS 13:02 | PROVIDERS: ATTENDING PHYSICIAN Internal Medicine; FAMILY PHYSICIAN Family Medicine | DX: I26.99 Other pulmonary embolism without acute cor pulmonale (principal) | CPT/HCPCS: 93306; Q9950 ==

== ENCOUNTER → 2025-04-07 11:03 | Outpatient (REF) | payer BC, SELFPAY | LOC: RCS 11:03 | PROVIDERS: ATTENDING PHYSICIAN Internal Medicine; FAMILY PHYSICIAN Family Medicine | DX: I26.99 Other pulmonary embolism without acute cor pulmonale (principal); R06.09 Other forms of dyspnea; R07.9 Chest pain, unspecified | CPT/HCPCS: 93017 ==